=== PATIENT | female | born 1985 | race Caucasian/White ===

== ENCOUNTER 2016-12-14 03:31 | Inpatient (IN) | payer OTHER ==
[2016-12-14] MEDS ORDERED: Sodium Chloride 0.9% 10 ML Syringe FLUSH PRN ×2 (04:44→06:01)
[2016-12-14] MEDS ORDERED: fentaNYL 100 MCG/2 ML SDV IVPUSH PRN (06:01)
[2016-12-14] MEDS ORDERED: Ondansetron 4 MG/2 ML SDV IV PRN (06:01)
[2016-12-14] MEDS ORDERED: Acetaminophen 325 MG Tab PO PRN (06:01)
--- NOTE | 2016-12-14 06:23 | PCM.LDHP ---
L&D History of Present Illness - General Date of Service: 12/14/16 Admit Problem/Dx: Patient Status Order with Admit Dx/Problem 12/14/16 06:03 Patient Status [ADT] Routine Admission Diagnosis/Problem Admission Diagnosis/Problem - History of Present Illness Improves with: Reports: None Worsens with: Reports: None - Related Data Allergies/Adverse Reactions: Allergies Allergy/AdvReac Type Severity Reaction Status Date / Time No Known Allergies Allergy Verified 08/05/14 08:03 Home Medications: Home Meds Calcium Carbonate/Vitamin D3 [Calcium 500 + Vit D 400] 1 tab PO DAILY 08/05/14 [ History] Docusate Sodium [Colace] 100 mg PO DAILY 08/05/14 [History] Famotidine [Pepcid] 20 mg PO DAILY 08/05/14 [History] Vit with Ca/FA/Iron [ Plus Iron] 1 tab PO DAILY 08/05/14 [ History] Past Medical History [employer] History: Reports: : 2 Para: 1 Other Musculoskeletal History: R wrist fx as child - Past Surgical History GI Surgical History: Reports: Cholecystectomy Social & Family History - Tobacco Use Smoking Status *Q: Never Smoker Second Hand Smoke Exposure: No - Caffeine Use Caffeine Use: Reports: Soda - Recreational Drug Use Recreational Drug Use: No H&P Review of Systems - Review of Systems: Review Of Systems: See Below General: Reports: No Symptoms HEENT: Reports: No Symptoms Pulmonary: Reports: No Symptoms Cardiovascular: Reports: No Symptoms Gastrointestinal: Reports: No Symptoms Genitourinary: Reports: No Symptoms Musculoskeletal: Reports: No Symptoms Skin: Reports: No Symptoms Psychiatric: Reports: No Symptoms Neurological: Reports: No Symptoms Hematologic/Lymphatic: Reports: No Symptoms Immunologic: Reports: No Symptoms L&D Exam - Exam Exam: See Below - Vital Signs Vital Signs: Last Vital Signs Temp 36.6 C 12/14/16 03:35 Pulse 89 12/14/16 03:35 Resp 16 12/14/16 03:35 BP 132/80 12/14/16 03:35 Pulse Ox Weight: 104.326 kg - OB Specific Contraction Duration (sec): 50-60 Contraction Frequency (min): 3-4 Contraction Intensity: Moderate Movement: Active Heart Tones: Present Presentation: Vertex - Weir Score Weir Score Cervix Position: Anterior Weir Score Consistency: Soft Weir Score Effacement: >80% Weir Score Dilation: 3-4 cm Weir Score Infant's Station: -1 ,0 Weir Score Total: 11 - Exam General: Alert, Oriented HEENT: PERRLA, Conjunctiva Clear, EACs Clear, EOMI, Hearing Intact, Mucosa Moist & [place], Nares Patent, Normal Nasal Septum, Posterior Pharynx Clear, TMs Clear Neck: Supple, Trachea Midline Lungs: Clear to Auscultation, Normal Respiratory Effort Cardiovascular: Regular Rate, Regular Rhythm GI/Abdominal Exam: Normal Bowel Sounds, Soft, Non-Tender, No Organomegaly, No Distention, No Abnormal Bruit, No Mass, Pelvis Stable Rectal Exam: Normal Exam, Normal Rectal Tone Genitourinary: Normal external exam, Normal bimanual exam, Normal speculum exam Back Exam: Normal Inspection, Full Range of Motion Extremities: Normal Inspection, Normal Range of Motion, Non-Tender, No Pedal Edema, Normal Capillary Refill Skin: Warm, Dry, Intact Neurological: Cranial Nerves Intact, Reflexes Equal Bilateral Psychiatric: Alert, Normal Affect, Normal Mood - Patient Data Lab Results Last 24 hrs: Laboratory Results - last 24 hr 12/14/16 12/14/16 Range/Units 04:24 04:44 Urine Color Yellow Urine Appearance Clear Urine pH 6.0 (4.5-8.0) Ur Specific [place] 1.015 (1.008-1.030) Urine Protein Negative (NEGATIVE) mg/dL Urine Glucose (UA) Normal (NEGATIVE) mg/dL Urine Ketones Negative (NEGATIVE) mg/dL Urine Occult Blood Negative (NEGATIVE) Urine Nitrite Negative (NEGATIVE) Urine Bilirubin Negative (NEGATIVE) Urine Urobilinogen Normal (NORMAL) mg/dL Ur Leukocyte Esterase Negative (NEGATIVE) Urine RBC Not seen (0-5) Urine WBC Not seen (0-5) Ur Epithelial Cells Few Amorphous Sediment Not seen Urine Bacteria Few Urine Mucus Not seen Urine Opiates Screen Negative (NEGATIVE) Ur Oxycodone Screen Negative (NEGATIVE) Urine Methadone Screen Negative (NEGATIVE) Ur Propoxyphene Screen Negative (NEGATIVE) Ur Barbiturates Screen Negative (NEGATIVE) Ur Tricyclics Screen Negative (NEGATIVE) Ur Phencyclidine Scrn Negative (NEGATIVE) Ur Amphetamine Screen Negative (NEGATIVE) U Methamphetamines Scrn Negative (NEGATIVE) Urine MDMA Screen Negative (NEGATIVE) U Benzodiazepines Scrn Negative (NEGATIVE) U Cocaine Metab Screen Negative (NEGATIVE) U Marijuana (THC) Screen Negative (NEGATIVE) - Problem List (1) SNOMED Code(s): 10842351 ICD Code: Z34.90 - ENCNTR FOR SUPRVSN OF NORMAL , UNSP, UNSP TRIMESTER Status: Acute Current Visit: Yes Qualifiers: Weeks of gestation: 40 weeks Qualified Code(s): Z3A.40 - 40 weeks gestation of (2) Normal labor SNOMED Code(s): 02783506 ICD Code: O80 - ENCOUNTER FOR FULL-TERM UNCOMPLICATED DELIVERY; Z37.9 - OUTCOME OF DELIVERY, UNSPECIFIED Status: Acute Current Visit: No Problem List Initiated/Reviewed/Updated: Yes Orders Last 24hrs: Active Orders 24 hr Category Date Time Status Patient Status [ADT] Routine ADT 12/14/16 06:03 Ordered Ambulate [RC] PER UNIT ROUTINE Care 12/14/16 06:01 Ordered Communication Order [RC] ASDIRECTED Care 12/14/16 06:03 Ordered Heart Tones [RC] PER UNIT ROUTINE Care 12/14/16 06:03 Ordered May Shower [RC] ASDIRECTED Care 12/14/16 06:01 Ordered Notify Provider Vital Signs [RC] PRN Care 12/14/16 06:01 Ordered Notify Provider [RC] PRN Care 12/14/16 06:03 Ordered OB Check [OM.PC] Click to Edit Care 12/14/16 03:55 Ordered Up ad Lizzeth [RC] ASDIRECTED Care 12/14/16 06:01 Ordered VTE/DVT Education [RC] Click to Edit Care 12/14/16 06:10 Ordered Vital Signs [RC] PER UNIT ROUTINE Care 12/14/16 06:03 Ordered Regular Diet [DIET] Diet 12/14/16 Breakfast Ordered CBC W/O DIFF,HEMOGRAM [HEME] Routine Lab 12/14/16 04:44 Ordered Acetaminophen [Tylenol] Med 12/14/16 06:01 Ordered 650 mg PO Q4H PRN Ondansetron [Zofran] Med 12/14/16 06:01 Ordered 4 mg IV Q4H PRN Sodium Chloride 0.9% [Saline Flush] Med 12/14/16 04:44 Active 10 ml FLUSH ASDIRECTED PRN Sodium Chloride 0.9% [Saline Flush] Med 12/14/16 06:01 Ordered 10 ml FLUSH ASDIRECTED PRN fentaNYL [Sublimaze] Med 12/14/16 06:01 Ordered 100 mcg IVPUSH Q1H PRN DVT/VTE Prophylaxis Reflex [OM.PC] Routine Oth 12/14/16 06:01 Ordered Saline Lock Insert [OM.PC] Routine Oth 12/14/16 04:44 Ordered Saline Lock Insert [OM.PC] Routine Oth 12/14/16 06:03 Ordered Resuscitation Status Routine Resus Stat 12/14/16 06:01 Ordered Medication Orders Acetaminophen (Tylenol) 650 mg PO Q4H PRN PRN Reason: Pain (Mild 1-3) and fever Fentanyl (Sublimaze) 100 mcg IVPUSH Q1H PRN PRN Reason: Pain (moderate 4-6) Ondansetron HCl (Zofran) 4 mg IV Q4H PRN PRN Reason: Nausea/Vomiting Sodium Chloride (Saline Flush) 10 ml FLUSH ASDIRECTED PRN PRN Reason: Keep Vein Open Sodium Chloride (Saline Flush) 10 ml FLUSH ASDIRECTED PRN PRN Reason: Keep Vein Open Assessment/Plan Comment:: 12/14/2016 31 yo at 40 1/7 gestational weeks here in active labor SVE-4/90/-1 [place] regular FHTs category one Plan- Continue to monitor labor Continue to monitor FHTs Pain management per patient request Plan and anticipate a vaginal delivery
[2016-12-14] MEDS ORDERED: Lactated Ringers 1,000 ML IV ONE ×2 (06:33→06:46)
[2016-12-14] MEDS ORDERED: ePHEDrine 50 MG/ML SDV ONE (07:02)
[2016-12-14] MEDS ORDERED: Oxytocin 10 Units/1 ML SDV ONE (07:02)
[2016-12-14] MEDS ORDERED: Lidocaine 1% 50 ML MDV ONE (07:03)
[2016-12-14] MEDS ORDERED: Naloxone 0.4 MG/ML SDV ONE (07:03)
[2016-12-14] MEDS ORDERED: Ropivacaine 100 ML ONE (07:41)
--- NOTE | 2016-12-14 07:59 | PCM.PNLD ---
Labor Progress Note - VS & Meds Vital Signs: Last Vital Signs Temp 97.9 F 12/14/16 03:35 Pulse 89 12/14/16 03:35 Resp 16 12/14/16 03:35 BP 132/80 12/14/16 03:35 Pulse Ox Active Medications: Current Medications Acetaminophen (Tylenol) 650 mg PO Q4H PRN PRN Reason: Pain (Mild 1-3) and fever Fentanyl (Sublimaze) 100 mcg IVPUSH Q1H PRN PRN Reason: Pain (moderate 4-6) Ondansetron HCl (Zofran) 4 mg IV Q4H PRN PRN Reason: Nausea/Vomiting Sodium Chloride (Saline Flush) 10 ml FLUSH ASDIRECTED PRN PRN Reason: Keep Vein Open Discontinued Medications Ephedrine Sulfate (Ephedrine Sulfate) Confirm Administered Dose 50 mg .ROUTE .STK-MED ONE Stop: 12/14/16 07:03 Lactated Ringer's (Ringers, Lactated) 1,000 mls @ 999 mls/hr IV BOLUS ONE Stop: 12/14/16 07:33 Last Admin: 12/14/16 06:30 Dose: 999 mls/hr Lactated Ringer's (Ringers, Lactated) 1,000 mls @ 999 mls/hr IV .BOLUS ONE Stop: 12/14/16 07:46 Last Admin: 12/14/16 06:59 Dose: Not Given Oxytocin/Sodium Chloride (Pitocin In Ns 20 Units/1,000 Ml) 20 unit in 1,000 mls @ 2,997 mls/hr IV ONETIME ONE; 999 MUNITS/MIN PRN Reason: Protocol Stop: 12/14/16 07:06 Oxytocin/Sodium Chloride (Pitocin In Ns 20 Units/1,000 Ml) Confirm Administered Dose 20 unit in 1,000 mls @ as directed .ROUTE .STK-MED ONE Stop: 12/14/16 07:04 Ropivacaine (Naropin 0.2%) Confirm Administered Dose 100 mls @ as directed .ROUTE .STK-MED ONE Stop: 12/14/16 07:42 Lidocaine HCl (Xylocaine 1%) Confirm Administered Dose 100 ml .ROUTE .STK-MED ONE Stop: 12/14/16 07:04 Naloxone HCl (Narcan) Confirm Administered Dose 0.4 mg .ROUTE .STK-MED ONE Stop: 12/14/16 07:04 Oxytocin (Pitocin) Confirm Administered Dose 10 unit .ROUTE .STK-MED ONE Stop: 12/14/16 07:03 - Uterine Contractions Uterine Monitoring Mode: External [place] Contraction Frequency (min): 2-4 Contraction Duration (sec): 60-80 Contraction Intensity: Moderate Uterine Resting Tone: Soft - Monitoring Monitor Mode: Doppler/Auscultation Heart Rate (FHR) Baseline: 130 Heart Rate (FHR) Variability: Moderate (6-25 bmp) Accelerations: Present, 15x15 Decelerations: None Strip Review: Category I - Vaginal Exam Dilation (cm): 5 Effacement (Percent): 90 Station: 0 Cervical Position: Midposition Sterile Vaginal Exam Performed By: Teodora Wood Vaginal Exam Comment: AROM , clear fluid - Labor Progress (Free Text) Labor Progress: epidural infusing, comfortable, calix being placed, AROM just now, clear fluid Plan for vaginal delivery
--- NOTE | 2016-12-14 08:23 | ANES ---
DATE OF SERVICE: 12/14/2016 HISTORY OF PRESENT ILLNESS: Lily is a 31-year-old female patient of [facility], #[id number]. I was requested by one of our midwives, Lara Wood, to assess her for labor epidural placement. Upon arrival, I discussed with her, her history and reviewed her labs, found no contraindication to epidural placement. She is aware of the risks and benefits of the procedure and okay to proceed and consent was received. DESCRIPTION OF PROCEDURE: I had her seated at the edge of the bed. Betadine prep x3 to the lumbar region. Sterile drape was placed, 1% lidocaine skin wheal as well as deep at the L4- L5 region. I was unable to pass between bone. I repositioned to L3-4 after local anesthetic was placed. A 17-gauge Tuohy was placed to loss of resistance with ease. Negative CSF, negative heme, negative paresthesia. It was just 2 cm to the left of midline. Catheter again was placed 12 cm and secured test dose of 3 mL of 1.5% lidocaine with 1:200,000 epinephrine with negative sequelae. I then bolused her with 12 mL of 0.2% ropivacaine and began infusion with the same 0.2% at 12 mL an hour. We placed her in the supine position. She tolerated the procedure quite well. Please refer to nurse's notes for vital signs. Neuro status, which were unchanged. Reported off to and again, the patient tolerated the procedure quite well. Alfredo Wright CRNA /[id number]
[2016-12-14] MEDS ORDERED: ePHEDrine 50 MG/ML SDV IVPUSH PRN (09:02)
[2016-12-14] MEDS ORDERED: Ropivacaine 100 ML EPIDUR SCH (09:02)
[2016-12-14] MEDS ORDERED: Naloxone 0.4 MG/ML SDV IVPUSH PRN (09:02)
[2016-12-14] MEDS ORDERED: Lactated Ringers 1,000 ML IV SCH ×2 (09:30→10:00)
[2016-12-14] MEDS ORDERED: Lanolin 100% Cream 40 GM Tube TOP PRN (14:17)
[2016-12-14] MEDS ORDERED: Benzocaine 20% Top Spray 56 GM Bottle TOP PRN (14:17)
[2016-12-14] MEDS ORDERED: Witch Hazel Medicated Pads 100/Jar TOP PRN (14:17)
[2016-12-14] MEDS ORDERED: Acetaminophen/Codeine 300-30 MG Tab PO PRN (14:17)
--- NOTE | 2016-12-14 14:32 | PCM.DEL ---
L & D Note - General Info Date of Service: 12/14/16 Mother's Due Date: 12/13/16 - Delivery Note Labor: Spontaneous Delivery Outcome: Livebirth Infant Delivery Method: Spontaneous Vaginal Delivery-Single Infant Delivery Mode: Spontaneous Presentation: Right Occiput Anterior (KRIS) Nuchal Cord: Present Anesthesia Type: Epidural Amniotic Fluid Description: Clear Episiotomy Type: None Laceration: None Placenta: Intact, Expressed Cord: 3 Vessels Estimated Blood Loss: 100 Provider: Teodora Wood Score 1 min: 8 Score 5 min: 8 Score 10 min: 9 Second Stage Interventions: Reports: Second Nurse Reviewed Contraction Pattern, Laboring Down, Pushing Effectively, Pushing, McRobert's Position Delivery Comments (Free Text/Narrative):: This 31 year old G2 now P2 who is 40 1/7 weeks gestation delivered via a viable male at 1353 in KRIS position.He had a nuchal cord and right hand presentation. The cord was clamped and cut and the baby was delivered onto mother's abdomen. He was taken to the warmer were he was dried and stimulated and cried. Apgars 8,8,9.Three vessel cord. The placenta was expressed spontaneously intact, [place]. Her perineum was intact and no lacerations were found of the cervix, vagina, or rectum. EBL 100cc Weight 8-13.3 Mother and baby to post and nursery in stable condition. Baby to breast within the first hour of life. Induction Criteria - Weir Score Weir Score Dilation: 3-4 cm Weir Score Effacement: >80% Weir Score Infant's Station: -1 ,0 Weir Score Consistency: Soft Weir Score Cervix Position: Anterior Weir Score Total: 11 Weir Score Presenting Part: Reports: Cephalic - Augmentation Estimated Pelvis: Reports: Adequate Weight Estimated:: Reports: AGA Reassuring Monitoring Strip: Yes Absence of Tachy Systole: Yes - General Info Date of Service: 12/14/16 (delivery) Admission Dx/Problem (Free Text): Patient Status Order with Admit Dx/Problem 12/14/16 06:03 Patient Status [ADT] Routine Admission Diagnosis/Problem Admission Diagnosis/Problem Functional Status: Reports: Pain Controlled - Review of Systems General: Reports: No Symptoms HEENT: Reports: No Symptoms Pulmonary: Reports: No Symptoms Cardiovascular: Reports: No Symptoms Gastrointestinal: Reports: No Symptoms Genitourinary: Reports: No Symptoms Musculoskeletal: Reports: No Symptoms Skin: Reports: No Symptoms Neurological: Reports: No Symptoms Psychiatric: Reports: No Symptoms - Patient Data Vitals - Most Recent: Last Vital Signs Temp 98.1 F 12/14/16 12:00 Pulse 86 12/14/16 12:30 Resp 20 12/14/16 12:30 BP 112/67 12/14/16 12:30 Pulse Ox 99 12/14/16 12:30 Weight - Most Recent: 230 lb Lab Results Last 24 Hours: Laboratory Results - last 24 hr 12/14/16 12/14/16 12/14/16 Range/Units 04:24 04:44 06:26 WBC 10.8 (4.5-11.0) K/uL RBC 4.05 (3.30-5.50) M/uL Hgb 12.3 D (12.0-15.0) g/dL Hct 36.4 (36.0-48.0) % MCV 90 (80-98) fL MCH 30 (27-31) pg MCHC 34 (32-36) % Plt Count 125 L (150-400) K/uL Urine Color Yellow Urine Appearance Clear Urine pH 6.0 (4.5-8.0) Ur Specific [place] 1.015 (1.008-1.030) Urine Protein Negative (NEGATIVE) mg/dL Urine Glucose (UA) Normal (NEGATIVE) mg/dL Urine Ketones Negative (NEGATIVE) mg/dL Urine Occult Blood Negative (NEGATIVE) Urine Nitrite Negative (NEGATIVE) Urine Bilirubin Negative (NEGATIVE) Urine Urobilinogen Normal (NORMAL) mg/dL Ur Leukocyte Esterase Negative (NEGATIVE) Urine RBC Not seen (0-5) Urine WBC Not seen (0-5) Ur Epithelial Cells Few Amorphous Sediment Not seen Urine Bacteria Few Urine Mucus Not seen Urine Opiates Screen Negative (NEGATIVE) Ur Oxycodone Screen Negative (NEGATIVE) Urine Methadone Screen Negative (NEGATIVE) Ur Propoxyphene Screen Negative (NEGATIVE) Ur Barbiturates Screen Negative (NEGATIVE) Ur Tricyclics Screen Negative (NEGATIVE) Ur Phencyclidine Scrn Negative (NEGATIVE) Ur Amphetamine Screen Negative (NEGATIVE) U Methamphetamines Scrn Negative (NEGATIVE) Urine MDMA Screen Negative (NEGATIVE) U Benzodiazepines Scrn Negative (NEGATIVE) U Cocaine Metab Screen Negative (NEGATIVE) U Marijuana (THC) Screen Negative (NEGATIVE) Med Orders - Current: Current Medications Acetaminophen (Tylenol) 650 mg PO Q4H PRN PRN Reason: Pain (Mild 1-3) and fever Ephedrine Sulfate (Ephedrine Sulfate) 5 - 10 mg IVPUSH ASDIRECTED PRN PRN Reason: IF SYSTOLIC BP LESS THAN 100 Fentanyl (Sublimaze) 100 mcg IVPUSH Q1H PRN PRN Reason: Pain (moderate 4-6) Ropivacaine (Naropin 0.2%) 100 mls @ 0 mls/hr EPIDUR ASDIRECTED SURJIT; Titrate PRN Reason: Protocol Last Admin: 12/14/16 13:08 Dose: 12 mls/hr, 12 mls/hr Lactated Ringer's (Ringers, Lactated) 1,000 mls @ 100 mls/hr IV ASDIRECTED SURJIT Last Admin: 12/14/16 07:45 Dose: 100 mls/hr Oxytocin/Sodium Chloride (Pitocin In Ns 20 Units/1,000 Ml) 20 unit in 1,000 mls @ 6 mls/hr IV TITRATE SURJIT; 2 MUNITS/MIN PRN Reason: Protocol Last Titration: 12/14/16 13:25 Dose: 16 munits/min, 48 mls/hr Naloxone HCl (Narcan) 0.1 mg IVPUSH Q5M PRN PRN Reason: IF RESP RATE LESS THAN 6 Ondansetron HCl (Zofran) 4 mg IV Q4H PRN PRN Reason: Nausea/Vomiting Sodium Chloride (Saline Flush) 10 ml FLUSH ASDIRECTED PRN PRN Reason: Keep Vein Open Discontinued Medications Ephedrine Sulfate (Ephedrine Sulfate) Confirm Administered Dose 50 mg .ROUTE .STK-MED ONE Stop: 12/14/16 07:03 Last Admin: 12/14/16 09:24 Dose: Not Given Lactated Ringer's (Ringers, Lactated) 1,000 mls @ 999 mls/hr IV BOLUS ONE Stop: 12/14/16 07:33 Last Admin: 12/14/16 06:30 Dose: 999 mls/hr Lactated Ringer's (Ringers, Lactated) 1,000 mls @ 999 mls/hr IV .BOLUS ONE Stop: 12/14/16 07:46 Last Admin: 12/14/16 06:59 Dose: Not Given Oxytocin/Sodium Chloride (Pitocin In Ns 20 Units/1,000 Ml) 20 unit in 1,000 mls @ 2,997 mls/hr IV ONETIME ONE; 999 MUNITS/MIN PRN Reason: Protocol Stop: 12/14/16 07:06 Last Admin: 12/14/16 10:27 Dose: Not Given Oxytocin/Sodium Chloride (Pitocin In Ns 20 Units/1,000 Ml) Confirm Administered Dose 20 unit in 1,000 mls @ as directed .ROUTE .STK-MED ONE Stop: 12/14/16 07:04 Last Admin: 12/14/16 10:10 Dose: Not Given Ropivacaine (Naropin 0.2%) Confirm Administered Dose 100 mls @ as directed .ROUTE .STK-MED ONE Stop: 12/14/16 07:42 Lidocaine HCl (Xylocaine 1%) Confirm Administered Dose 100 ml .ROUTE .STK-MED ONE Stop: 12/14/16 07:04 Naloxone HCl (Narcan) Confirm Administered Dose 0.4 mg .ROUTE .STK-MED ONE Stop: 12/14/16 07:04 Oxytocin (Pitocin) Confirm Administered Dose 10 unit .ROUTE .STK-MED ONE Stop: 12/14/16 07:03 Last Admin: 12/14/16 09:50 Dose: Not Given - Exam General: Alert, Oriented HEENT: Pupils Equal, Pupils Reactive, EOMI, Mucous Membr. Moist/[place] Neck: Supple Lungs: Clear to Auscultation, Normal Respiratory Effort Cardiovascular: Regular Rate, Regular Rhythm GI/Abdominal Exam: Normal Bowel Sounds, Soft, Non-Tender, No Organomegaly, No Distention, No Abnormal Bruit, No Mass, Pelvis Stable (Female) Exam: Normal External Exam, Normal Speculum Exam, Normal Bimanual Exam, Cervical Dilatation, Enlarged Uterus, Vaginal Bleeding Back Exam: Normal Inspection, Full Range of Motion Extremities: Normal Inspection, Normal Range of Motion, Non-Tender, No Pedal Edema, Normal Capillary Refill Skin: Warm, Dry, Intact Wound/Incisions: Healing Well Neurological: No New Focal Deficit Psy/Mental Status: Alert, Normal Affect, Normal Mood - Problem List & Annotations (1) Vaginal delivery SNOMED Code(s): 373451093 Code(s): O80 - ENCOUNTER FOR FULL-TERM UNCOMPLICATED DELIVERY Status: Acute Current Visit: Yes (2) Normal labor SNOMED Code(s): 08549541 Code(s): O80 - ENCOUNTER FOR FULL-TERM UNCOMPLICATED DELIVERY; Z37.9 - OUTCOME OF DELIVERY, UNSPECIFIED Status: Acute Current Visit: Yes (3) SNOMED Code(s): 96219351 Code(s): Z34.90 - ENCNTR FOR SUPRVSN OF NORMAL , UNSP, UNSP TRIMESTER Status: Acute Current Visit: Yes Qualifiers: Weeks of gestation: 40 weeks Qualified Code(s): Z3A.40 - 40 weeks gestation of - Problem List Review Problem List Initiated/Reviewed/Updated: Yes - My Orders Last 24 Hours: My Active Orders 12/14/16 09:19 Urinary Catheter Assessment [RC] ASDIRECTED 12/14/16 09:30 Insert [place] Catheter [Insert Urinary Catheter] [OM.PC] Q24H 12/14/16 10:15 Oxytocin/Normal Saline [Pitocin in NS 20 Units/1,000 ML] 20 unit in 1,000 ml IV TITRATE 12/14/16 14:17 CBC WITH AUTO DIFF [HEME] Stat Acetaminophen/Codeine [Tylenol with Codeine No.3 300MG/30MG] 1 tab PO Q4H PRN Benzocaine [[id number]-Pgaqkbb 20% [place]] See Dose Instructions TOP Q4H PRN Ibuprofen [Motrin] 600 mg PO Q6H PRN Lanolin [Lansinoh HPA] 1 gm TOP ASDIRECTED PRN Witch Ximena [Tucks] 1 pad TOP ASDIRECTED PRN Assess Lochia [WOMSER] Per Unit Routine Assess Uterine Involution [WOMSER] Per Unit Routine 12/14/16 14:18 Patient Status [ADT] Routine Vital Signs [RC] PFP 12/14/16 14:19 Ice Therapy [OM.PC] Per Unit Routine Perineal Care [OM.PC] Per Unit Routine Peripheral IV Discontinue [OM.PC] Routine Sitz Bath [OM.PC] Per Unit Routine - Assessment Assessment:: 12/14/16 31 year old 40 1/7 weeksG2 now P2 without complications Labs: GBS neg HIV neg HGB 12.3 Rubella immune - Plan Plan:: 12/14/2016 31 yo at 40 1/7 gestational weeks here in active labor SVE-/-1 [place] regular FHTs category one Plan- Continue to monitor labor Continue to monitor FHTs Pain management per patient request Plan and anticipate a vaginal delivery 12/14/16 Routine care support CBC in am home 24-48 hours
[2016-12-14] MEDS: Ibuprofen 600 MG Tab PO PRN (15:44)
[2016-12-15] MEDS: Ibuprofen 600 MG Tab PO PRN (00:05)
[2016-12-15] MEDS ORDERED: Acetaminophen 325 MG Tab, 50 Tab Bulk Bottle PO PRN (07:23)
[2016-12-15] MEDS ORDERED: Ibuprofen 200 MG Tab, 24 Tab Bulk Bottle PO PRN (07:25)
--- NOTE | 2016-12-15 10:41 | PCM.PNPP ---
- General Info Date of Service: 12/15/16 (PPD 1) Admission Dx/Problem (Free Text): Patient Status Order with Admit Dx/Problem 12/14/16 06:03 Patient Status [ADT] Routine Admission Diagnosis/Problem Admission Diagnosis/Problem Functional Status: Reports: Pain Controlled - Review of Systems General: Reports: No Symptoms HEENT: Reports: No Symptoms Pulmonary: Reports: No Symptoms Cardiovascular: Reports: No Symptoms Gastrointestinal: Reports: No Symptoms Genitourinary: Reports: No Symptoms Musculoskeletal: Reports: No Symptoms Skin: Reports: No Symptoms Neurological: Reports: No Symptoms Psychiatric: Reports: No Symptoms - General Info Date of Service: 12/15/16 - Patient Data Vital Signs - Most Recent: Last Vital Signs Temp 97.3 F 12/15/16 07:09 Pulse 74 12/15/16 07:09 Resp 18 12/15/16 07:09 BP 120/77 12/15/16 07:09 Pulse Ox 98 12/15/16 07:09 Weight - Most Recent: 230 lb Lab Results - Last 24 Hours: Laboratory Results - last 24 hr 12/15/16 Range/Units 05:30 WBC 11.9 H (4.5-11.0) K/uL RBC 3.88 (3.30-5.50) M/uL Hgb 11.8 L (12.0-15.0) g/dL Hct 35.3 L (36.0-48.0) % MCV 91 (80-98) fL MCH 30 (27-31) pg MCHC 33 (32-36) % Plt Count 125 L (150-400) K/uL Neut % (Auto) 69 H (36-66) % Lymph % (Auto) 20 L (24-44) % [place] % (Auto) 10 H (2-6) % Eos % (Auto) 1 L (2-4) % Baso % (Auto) 0 (0-1) % Med Orders - Current: Current Medications Acetaminophen (Tylenol Bulk Bottle) 650 mg PO Q4H PRN PRN Reason: Pain (mild 1-3) Last Admin: 12/15/16 08:06 Dose: 650 mg Acetaminophen/Codeine Phosphate (Tylenol With Codeine No.3 300mg/30mg) 1 tab PO Q4H PRN PRN Reason: Pain (moderate 4-6) Benzocaine (Vmyc-X-Enhgnik 20% Burke) 0 gm TOP Q4H PRN PRN Reason: Perineal Comfort Measure Emollient Ointment (Lansinoh Hpa) 0 gm TOP ASDIRECTED PRN PRN Reason: Sore Nipples Ephedrine Sulfate (Ephedrine Sulfate) 5 - 10 mg IVPUSH ASDIRECTED PRN PRN Reason: IF SYSTOLIC BP LESS THAN 100 Fentanyl (Sublimaze) 100 mcg IVPUSH Q1H PRN PRN Reason: Pain (moderate 4-6) Ropivacaine (Naropin 0.2%) 100 mls @ 0 mls/hr EPIDUR ASDIRECTED SURJIT; Titrate PRN Reason: Protocol Last Admin: 12/14/16 13:08 Dose: 12 mls/hr, 12 mls/hr Lactated Ringer's (Ringers, Lactated) 1,000 mls @ 100 mls/hr IV ASDIRECTED SURJIT Last Admin: 12/14/16 07:45 Dose: 100 mls/hr Oxytocin/Sodium Chloride (Pitocin In Ns 20 Units/1,000 Ml) 20 unit in 1,000 mls @ 6 mls/hr IV TITRATE SURJIT; 2 MUNITS/MIN PRN Reason: Protocol Last Titration: 12/14/16 13:25 Dose: 16 munits/min, 48 mls/hr Ibuprofen (Motrin Bulk Bottle) 600 mg PO Q6H PRN PRN Reason: Pain (mild 1-3) Last Admin: 12/15/16 08:05 Dose: 600 mg Naloxone HCl (Narcan) 0.1 mg IVPUSH Q5M PRN PRN Reason: IF RESP RATE LESS THAN 6 Ondansetron HCl (Zofran) 4 mg IV Q4H PRN PRN Reason: Nausea/Vomiting Sodium Chloride (Saline Flush) 10 ml FLUSH ASDIRECTED PRN PRN Reason: Keep Vein Open Witch Ximena (Tucks) 1 pad TOP ASDIRECTED PRN PRN Reason: Hemorrhoids Discontinued Medications Acetaminophen (Tylenol) 650 mg PO Q4H PRN PRN Reason: Pain (Mild 1-3) and fever Ephedrine Sulfate (Ephedrine Sulfate) Confirm Administered Dose 50 mg .ROUTE .K-MED ONE Stop: 12/14/16 07:03 Last Admin: 12/14/16 09:24 Dose: Not Given Lactated Ringer's (Ringers, Lactated) 1,000 mls @ 999 mls/hr IV BOLUS ONE Stop: 12/14/16 07:33 Last Admin: 12/14/16 06:30 Dose: 999 mls/hr Lactated Ringer's (Ringers, Lactated) 1,000 mls @ 999 mls/hr IV .BOLUS ONE Stop: 12/14/16 07:46 Last Admin: 12/14/16 06:59 Dose: Not Given Oxytocin/Sodium Chloride (Pitocin In Ns 20 Units/1,000 Ml) 20 unit in 1,000 mls @ 2,997 mls/hr IV ONETIME ONE; 999 MUNITS/MIN PRN Reason: Protocol Stop: 12/14/16 07:06 Last Admin: 12/14/16 10:27 Dose: Not Given Oxytocin/Sodium Chloride (Pitocin In Ns 20 Units/1,000 Ml) Confirm Administered Dose 20 unit in 1,000 mls @ as directed .ROUTE .STK-MED ONE Stop: 12/14/16 07:04 Last Admin: 12/14/16 10:10 Dose: Not Given Ropivacaine (Naropin 0.2%) Confirm Administered Dose 100 mls @ as directed .ROUTE .STK-MED ONE Stop: 12/14/16 07:42 Ibuprofen (Motrin) 600 mg PO Q6H PRN PRN Reason: mild pain or fever Last Admin: 12/15/16 00:05 Dose: 600 mg Lidocaine HCl (Xylocaine 1%) Confirm Administered Dose 100 ml .ROUTE .STK-MED ONE Stop: 12/14/16 07:04 Last Admin: 12/14/16 21:45 Dose: Not Given Naloxone HCl (Narcan) Confirm Administered Dose 0.4 mg .ROUTE .STK-MED ONE Stop: 12/14/16 07:04 Last Admin: 12/14/16 21:45 Dose: Not Given Oxytocin (Pitocin) Confirm Administered Dose 10 unit .ROUTE .STK-MED ONE Stop: 12/14/16 07:03 Last Admin: 12/14/16 09:50 Dose: Not Given - Infant Interaction Infant Disposition, : in Room with Family Interaction: Holding Feeding: Attempted ; Nursed Fair/Poor, Difficulty with Latch -on Support Person: - Recovery Exam Fundal Tone: Boggy, [place] with Massage Fundal Level: At Umbilicus Fundal Placement: Midline Lochia Amount: Small Lochia Color: Rubra/Red Perineum Description: Intact, Minimal Bruising/Swelling Episiotomy/Laceration: None - Exam General: Alert, Oriented HEENT: Pupils Equal Neck: Supple Lungs: Clear to Auscultation, Normal Respiratory Effort Cardiovascular: Regular Rate, Regular Rhythm GI/Abdominal Exam: Normal Bowel Sounds, Soft, Non-Tender, No Organomegaly, No Distention, No Abnormal Bruit, No Mass, Pelvis Stable Extremities: Normal Inspection, Normal Range of Motion, Non-Tender, No Pedal Edema, Normal Capillary Refill Skin: Warm, Dry, Intact Wound/Incisions: Healing Well Neurological: No New Focal Deficit Psy/Mental Status: Alert, Normal Affect, Normal Mood - Problem List & Annotations (1) Vaginal delivery SNOMED Code(s): 067757925 Code(s): O80 - ENCOUNTER FOR FULL-TERM UNCOMPLICATED DELIVERY Status: Acute Current Visit: Yes (2) Normal labor SNOMED Code(s): 72354135 Code(s): O80 - ENCOUNTER FOR FULL-TERM UNCOMPLICATED DELIVERY; Z37.9 - OUTCOME OF DELIVERY, UNSPECIFIED Status: Acute Current Visit: Yes (3) SNOMED Code(s): 89890557 Code(s): Z34.90 - ENCNTR FOR SUPRVSN OF NORMAL , UNSP, UNSP TRIMESTER Status: Acute Current Visit: Yes Qualifiers: Weeks of gestation: 40 weeks Qualified Code(s): Z3A.40 - 40 weeks gestation of - Problem List Review Problem List Initiated/Reviewed/Updated: Yes - My Orders Last 24 Hours: My Active Orders 12/14/16 10:15 Oxytocin/Normal Saline [Pitocin in NS 20 Units/1,000 ML] 20 unit in 1,000 ml IV TITRATE 12/14/16 14:17 Acetaminophen/Codeine [Tylenol with Codeine No.3 300MG/30MG] 1 tab PO Q4H PRN Benzocaine [Yinw-C-Urlxigu 20% Burke] See Dose Instructions TOP Q4H PRN Lanolin [Lansinoh HPA] 0 gm TOP ASDIRECTED PRN Witch Ximena [Tucks] 1 pad TOP ASDIRECTED PRN Assess Lochia [WOMSER] Per Unit Routine Assess Uterine Involution [WOMSER] Per Unit Routine 12/14/16 14:18 Patient Status [ADT] Routine 12/14/16 14:19 Ice Therapy [OM.PC] Per Unit Routine Perineal Care [OM.PC] Per Unit Routine Peripheral IV Discontinue [OM.PC] Routine Sitz Bath [OM.PC] Per Unit Routine 12/15/16 07:23 Acetaminophen [Tylenol Bulk Bottle] 650 mg PO Q4H PRN 12/15/16 07:25 Ibuprofen [Motrin Bulk Bottle] 600 mg PO Q6H PRN - Assessment Assessment:: 12/14/16 31 year old 40 1/7 weeksG2 now P2 without complications Labs: GBS neg HIV neg HGB 12.3 Rubella immune 12/15/16 doing well, nipples tender from poor latch HGB11.8 bleeding light mood good - Plan Plan:: 12/14/2016 31 yo at 40 1/7 gestational weeks here in active labor SVE-/-1 [place] regular FHTs category one Plan- Continue to monitor labor Continue to monitor FHTs Pain management per patient request Plan and anticipate a vaginal delivery 12/14/16 Routine care support CBC in am home 24-48 hours 12/15/16 Routine cares Home tomorrow Support and work in
[2016-12-16 08:13] VITALS: BP 135/75
--- NOTE | 2016-12-16 11:05 | PCM.PNPP ---
- General Info Date of Service: 12/16/16 (PPD 2 D/C) Admission Dx/Problem (Free Text): Patient Status Order with Admit Dx/Problem 12/14/16 06:03 Patient Status [ADT] Routine Admission Diagnosis/Problem Admission Diagnosis/Problem Functional Status: Reports: Pain Controlled - Review of Systems General: Reports: No Symptoms HEENT: Reports: No Symptoms Pulmonary: Reports: No Symptoms Cardiovascular: Reports: No Symptoms Gastrointestinal: Reports: No Symptoms Genitourinary: Reports: No Symptoms Musculoskeletal: Reports: No Symptoms Skin: Reports: No Symptoms Neurological: Reports: No Symptoms Psychiatric: Reports: No Symptoms - General Info Date of Service: 12/16/16 - Patient Data Vital Signs - Most Recent: Last Vital Signs Temp 97.7 F 12/16/16 08:12 Pulse 59 L 12/16/16 08:12 Resp 18 12/16/16 08:12 BP 135/75 12/16/16 08:12 Pulse Ox 97 12/16/16 08:12 Weight - Most Recent: 230 lb Med Orders - Current: Current Medications Acetaminophen (Tylenol Bulk Bottle) 650 mg PO Q4H PRN PRN Reason: Pain (mild 1-3) Last Admin: 12/15/16 08:06 Dose: 650 mg Acetaminophen/Codeine Phosphate (Tylenol With Codeine No.3 300mg/30mg) 1 tab PO Q4H PRN PRN Reason: Pain (moderate 4-6) Benzocaine (Keef-U-Ntkwjyf 20% [place]) 0 gm TOP Q4H PRN PRN Reason: Perineal Comfort Measure Emollient Ointment (Lansinoh Hpa) 0 gm TOP ASDIRECTED PRN PRN Reason: Sore Nipples Ephedrine Sulfate (Ephedrine Sulfate) 5 - 10 mg IVPUSH ASDIRECTED PRN PRN Reason: IF SYSTOLIC BP LESS THAN 100 Fentanyl (Sublimaze) 100 mcg IVPUSH Q1H PRN PRN Reason: Pain (moderate 4-6) Ropivacaine (Naropin 0.2%) 100 mls @ 0 mls/hr EPIDUR ASDIRECTED SURJIT; Titrate PRN Reason: Protocol Last Admin: 12/14/16 13:08 Dose: 12 mls/hr, 12 mls/hr Lactated Ringer's (Ringers, Lactated) 1,000 mls @ 100 mls/hr IV ASDIRECTED SURJIT Last Admin: 12/14/16 07:45 Dose: 100 mls/hr Oxytocin/Sodium Chloride (Pitocin In Ns 20 Units/1,000 Ml) 20 unit in 1,000 mls @ 6 mls/hr IV TITRATE SURJIT; 2 MUNITS/MIN PRN Reason: Protocol Last Titration: 12/14/16 13:25 Dose: 16 munits/min, 48 mls/hr Ibuprofen (Motrin Bulk Bottle) 600 mg PO Q6H PRN PRN Reason: Pain (mild 1-3) Last Admin: 12/15/16 08:05 Dose: 600 mg Naloxone HCl (Narcan) 0.1 mg IVPUSH Q5M PRN PRN Reason: IF RESP RATE LESS THAN 6 Ondansetron HCl (Zofran) 4 mg IV Q4H PRN PRN Reason: Nausea/Vomiting Sodium Chloride (Saline Flush) 10 ml FLUSH ASDIRECTED PRN PRN Reason: Keep Vein Open Witch Ximena (Tucks) 1 pad TOP ASDIRECTED PRN PRN Reason: Hemorrhoids Discontinued Medications Acetaminophen (Tylenol) 650 mg PO Q4H PRN PRN Reason: Pain (Mild 1-3) and fever Ephedrine Sulfate (Ephedrine Sulfate) Confirm Administered Dose 50 mg .ROUTE .STK-MED ONE Stop: 12/14/16 07:03 Last Admin: 12/14/16 09:24 Dose: Not Given Lactated Ringer's (Ringers, Lactated) 1,000 mls @ 999 mls/hr IV BOLUS ONE Stop: 12/14/16 07:33 Last Admin: 12/14/16 06:30 Dose: 999 mls/hr Lactated Ringer's (Ringers, Lactated) 1,000 mls @ 999 mls/hr IV .BOLUS ONE Stop: 12/14/16 07:46 Last Admin: 12/14/16 06:59 Dose: Not Given Oxytocin/Sodium Chloride (Pitocin In Ns 20 Units/1,000 Ml) 20 unit in 1,000 mls @ 2,997 mls/hr IV ONETIME ONE; 999 MUNITS/MIN PRN Reason: Protocol Stop: 12/14/16 07:06 Last Admin: 12/14/16 10:27 Dose: Not Given Oxytocin/Sodium Chloride (Pitocin In Ns 20 Units/1,000 Ml) Confirm Administered Dose 20 unit in 1,000 mls @ as directed .ROUTE .STK-MED ONE Stop: 12/14/16 07:04 Last Admin: 12/14/16 10:10 Dose: Not Given Ropivacaine (Naropin 0.2%) Confirm Administered Dose 100 mls @ as directed .ROUTE .STK-MED ONE Stop: 12/14/16 07:42 Ibuprofen (Motrin) 600 mg PO Q6H PRN PRN Reason: mild pain or fever Last Admin: 12/15/16 00:05 Dose: 600 mg Lidocaine HCl (Xylocaine 1%) Confirm Administered Dose 100 ml .ROUTE .STK-MED ONE Stop: 12/14/16 07:04 Last Admin: 12/14/16 21:45 Dose: Not Given Naloxone HCl (Narcan) Confirm Administered Dose 0.4 mg .ROUTE .STK-MED ONE Stop: 12/14/16 07:04 Last Admin: 12/14/16 21:45 Dose: Not Given Oxytocin (Pitocin) Confirm Administered Dose 10 unit .ROUTE .STK-MED ONE Stop: 12/14/16 07:03 Last Admin: 12/14/16 09:50 Dose: Not Given - Interaction Disposition, : [place] in Room with Family Infant Interaction: Holding Infant Infant Feeding: Attempted ; Nursed Fair/Poor, Bottle Fed , Difficulty with Latch-on Support Person: - Recovery Exam Fundal Tone: Firm Fundal Level: At Umbilicus Fundal Placement: Midline Lochia Amount: Small Lochia Color: [place] Perineum Description: Intact, Minimal Bruising/Swelling Episiotomy/Laceration: None - Exam General: Alert, Oriented HEENT: Pupils Equal Neck: Supple Lungs: Clear to Auscultation, Normal Respiratory Effort Cardiovascular: Regular Rate, Regular Rhythm GI/Abdominal Exam: Normal Bowel Sounds, Soft, Non-Tender, No Organomegaly, No Distention, No Abnormal Bruit, No Mass, Pelvis Stable Extremities: Normal Inspection, Normal Range of Motion, Non-Tender, No Pedal Edema, Normal Capillary Refill Skin: Warm, Dry, Intact Wound/Incisions: Healing Well Neurological: No New Focal Deficit Psy/Mental Status: Alert, Normal Affect, Normal Mood - Problem List & Annotations (1) Vaginal delivery SNOMED Code(s): 314775302 Code(s): O80 - ENCOUNTER FOR FULL-TERM UNCOMPLICATED DELIVERY Status: Acute Current Visit: Yes (2) Normal labor SNOMED Code(s): 46413572 Code(s): O80 - ENCOUNTER FOR FULL-TERM UNCOMPLICATED DELIVERY; Z37.9 - OUTCOME OF DELIVERY, UNSPECIFIED Status: Acute Current Visit: Yes (3) SNOMED Code(s): 54926861 Code(s): Z34.90 - ENCNTR FOR SUPRVSN OF NORMAL , UNSP, UNSP TRIMESTER Status: Acute Current Visit: Yes Qualifiers: Weeks of gestation: 40 weeks Qualified Code(s): Z3A.40 - 40 weeks gestation of - Problem List Review Problem List Initiated/Reviewed/Updated: Yes - Assessment Assessment:: 12/14/16 31 year old 40 1/7 weeksG2 now P2 without complications Labs: GBS neg HIV neg HGB 12.3 Rubella immune 12/15/16 doing well, nipples tender from poor latch HGB11.8 bleeding light mood good 12/16/16 Ready to go home Breast and bottle feeding doing well, no concerns - Plan Plan:: 12/14/2016 31 yo at 40 1/7 gestational weeks here in active labor SVE-/-1 [place] regular FHTs category one Plan- Continue to monitor labor Continue to monitor FHTs Pain management per patient request Plan and anticipate a vaginal delivery 12/14/16 Routine care support CBC in am home 24-48 hours 12/15/16 Routine cares Home tomorrow Support and work in 12/16/16 Home today See me in 6 weeks for a post visit
== END 2016-12-16 12:10 | disposition home or self-care (01) | DRG 775 ==
LOC: JP.OBCHECK 03:31 → JP.OB 05:45 → OBSVTOIN 13:53 → JP.OB 13:53 → JP.MS 13:53
PROVIDERS: ADMIT Nurse Practitioner Family; ATTEND Nurse Practitioner Family
PROC: 10E0XZZ Delivery of Products of Conception, External Approach (ICD-10-PCS; principal; 2016-12-14)
PROC: 10907ZC Drainage of Amniotic Fluid, Therapeutic from Products of Conception, Via Natural or Artificial Opening (ICD-10-PCS; 2016-12-14)
PROC: 00HU33Z Insertion of Infusion Device into Spinal Canal, Percutaneous Approach (ICD-10-PCS; 2016-12-14)
DX: O69.81X0 Labor and delivery complicated by cord around neck, without compression, not applicable or unspecified (principal); O32.2XX0 Maternal care for transverse and oblique lie, not applicable or unspecified; Z3A.40 40 weeks gestation of pregnancy; Z37.0 Single live birth
CPT/HCPCS: 36415; 59409; 80305; 81001; 85025; 85027; A9270-GY; J2590; J2795; J7120